=== PATIENT | male | born 1960 | race Caucasian/White ===

== ENCOUNTER → 2023-01-31 13:00 | Outpatient (CLI) | payer BC, SELFPAY ==
--- NOTE | ~2023-01-31 | US_ITS ---
EXAMINATION: US abdomen limited DATE: 01/31/2023 INDICATION: Nausea and vomiting TECHNIQUE: Multiple grayscale and Doppler ultrasound images of the abdomen were obtained. COMPARISON: None available FINDINGS: The head and body of the pancreas are normal. The pancreatic tail is obscured by bowel gas. There is a 1.7 cm cyst of the liver. The liver is otherwise normal with normal echogenicity and echo texture. No surface nodularity. Normal hepatopetal flow in the main portal vein. Stones are present i n the nondistended gallbladder. No gallbladder wall thickening or pericholecystic fluid. The normal c ommon bile duct measures 5 mm. There was no sonographic Cason sign. IMPRESSION: 1. Cholelithiasis without evidence of cholecystitis. Reviewed, dictated and finalized at location A.
== END ==
PROVIDERS: PCP Family Medicine; Visit Provider Family Medicine
DX: R11.2 Nausea with vomiting, unspecified (principal); R19.7 Diarrhea, unspecified; K21.9 Gastro-esophageal reflux disease without esophagitis; K80.20 Calculus of gallbladder without cholecystitis without obstruction
CPT/HCPCS: 76705